=== PATIENT | female | born 1955 | race Caucasian/White ===

== ENCOUNTER 2020-08-07 09:09 | Inpatient (IN) | payer MEDICARE, OTHER, SELFPAY ==
[2020-08-07] VITALS (14 sets, daily range): BP systolic 103–136; BP diastolic 58–94; PULSE 81–94; RESP 15–28; TEMP 36.3–37.6; O2SAT 90–100; BMI 25.8
--- NOTE | ~2020-08-07 | XR_ITS ---
EXAMINATION: XR chest 1V portable EXAM DATE: 08/07/2020 10:04 INDICATION: weakness, history COPD. TECHNIQUE: Portable AP frontal chest x-ray was obtained. Comparison is made to prior examination from 10/10/2015. FINDINGS: The lungs are clear. There are no pleural effusions. Cardiac silhouette is prominent but magnified on this AP technique. There is no pneumothorax suspected. The bones are osteopenic. The re are bony degenerative changes. IMPRESSION: No acute cardiopulmonary findings. Reviewed, dictated and finalized at location B. UTIVE ASSISTANT TO PRESIDENT
--- NOTE | ~2020-08-07 | CT_ITS ---
EXAMINATION: CT brain wo con EXAM DATE: 08/07/2020 09:47 INDICATION: left leg weakness. Dementia. TECHNIQUE: Spiral CT of the head was performed without contrast. Axial, coronal and sagittal images were reviewed. The dose-length product (DLP) for this examination was 605.33 mGy-cm. The exposure w as tailored according to patient size, and iterative reconstruction (ASIR) was used as additional dos e reduction technique. Comparison is made to prior examination from 10/05/2017. FINDINGS: There is no acute intraparenchymal hemorrhage. No evidence of intraparenchymal brain mass lesion. No evidence of acute infarction. Please note that initial head CT has limited sensitivity f or small or acute infarctions. There is moderate periventricular and subcortical hypodensity, nonspec ific but probably related to small vessel ischemic disease. There significant interval progression i n frontotemporal lobe atrophy compared to 2018, finding can correlate with Frontotemporal Dementia. T here is intracranial carotid arteriosclerosis. There are no extra-axial collections. There is no ma ss effect or midline shift. The orbits are unremarkable. Soft tissue is unremarkable. The visualiz ed sinuses and mastoid air cells are well aerated. IMPRESSION: 1. No acute intracranial findings. 2. Significant progression in frontotemporal lobe atrophy; finding could correlate with Frontotempor al Dementia. Reviewed, dictated and finalized at location B. R RELATIONS COORDINATOR IMPRESSION: 1. No acute intracranial findings. 2. Significant progression in frontotemporal lobe atrophy; finding could corre late with Frontotemporal Dementia.
--- NOTE | 2020-08-07 09:32 | ED.WEAKNESS ---
HPI - Weakness General Chief complaint: Weakness Stated complaint: Unable to walk x11/2 weeks Time Seen by Provider: 08/07/20 09:25 History of Present Illness HPI Narrative: Patient is a 65-year-old female who presents the ER with weakness. History limited due to patient's dementia and provided by the patient's . She reports over the last 5 days patient has had increase weakness with walking and he feels like he she is using her left lower extremity less. He reports when he tries to feed her she just holds the food in her mouth. She has been incontinent of urine. Patient had similar symptoms when she had a urinary tract infection in the past. Because she is not using her left lower extremity as well he is concerned she could potentially also have a stroke. No other focal deficit noted. Related Data Home Medications Medication Instructions Recorded Confirmed docusate sodium [Stool Softener] 100 mg PO DAILY 08/07/20 08/07/20 lorazepam 0.5 mg PO DAILY PRN 08/07/20 08/07/20 vfsbcsfhcdtu-Nm-zxix-minerals 1 tablet PO DAILY 08/07/20 08/07/20 [Women's Daily Multivitamin] oxybutynin chloride 10 mg PO DAILY 08/07/20 08/07/20 quetiapine 50 mg PO HS 08/07/20 08/07/20 quetiapine 100 mg PO HS 08/07/20 08/07/20 sertraline 50 mg PO DAILY 08/07/20 08/07/20 sertraline 100 mg PO DAILY 08/07/20 08/07/20 Allergies Allergy/AdvReac Type Severity Reaction Status Date / Time No Known Allergies Allergy Verified 08/07/20 09:26 Review of Systems Review of Systems: ROS unobtainable: Yes unobtainable due to mental status PMFSH Past Medical History Medical History (Updated 08/07/20 @ 18:37 by Raj Balderas MD) Anxiety COPD (chronic obstructive pulmonary disease) CVA (cerebral vascular accident) Dementia Depression Wernicke-Korsakoff syndrome Surgical History Surgical History (Updated 08/07/20 @ 14:24 by Indira Ellis NP) No pertinent past surgical history Surgical history unknown Family History Family History Father Chronic obstructive pulmonary disease Anxiety Mother Hypertension Son No problems noted. Sibling Breast cancer Social History Social History (Updated 08/07/20 @ 14:25 by Indira Ellis NP) Social History: The patient tells me that she used to smoke and according to her record she smoked 2 packs of cigarettes a day for greater than 40 years. She continued to smoke at up until at least 2018. She states that her is a durable power mergers and acquisitions attorney for healthcare that she only has 1 child. She states that she is a full code. The patient quit drinking approximately 2017. She tells me she has to drink vodka and 7up. Smoking status: Former smoker Alcohol intake: former Substance use: never Gender identity (if verbalized by the patient): Female Spiritual care concerns: No Exam Narrative: Exam Narrative: GENERAL: Chronically ill-appearing, well-nourished, and in no acute distress. HEAD: Normocephalic, atraumatic. ENT: Mucous membranes moist. CHEST: Clear to auscultation. No respiratory distress. HEART: Regular rate and rhythm. Normal peripheral pulses. ABDOMEN: Soft, nontender, nondistended. EXTREMITIES: Normal range of motion. No edema. SKIN: Warm, dry, no rash. NEURO: No upper or lower extremity drift. Cranial nerves II through XII intact. Alert and oriented x1. Course Course Emergency Course: Admit for observation as patient is poorly ambulating and fall risk, she has decreased p.o. intake in setting of infection. Vital Signs Vital signs: Vital Signs Temperature 99.6 F 08/07/20 09:17 Pulse Rate 91 08/07/20 09:17 Respiratory Rate 24 H 08/07/20 09:17 Pulse Oximetry 98 08/07/20 09:17 Temperature 97.8 F 08/07/20 18:13 Pulse Rate 82 08/07/20 18:13 Respiratory Rate 16 08/07/20 18:13 Blood Pressure 120/78 08/07/20 18:13 Pulse Oximetry 95 08/07/20 18:13 MDM - Weakness
--- NOTE | 2020-08-07 09:40 | ECG_ITS ---
Measurements Intervals [place] Rate: 89 P: 47 CA: 156 QRS: -51 QRSD: 77 T: 44 QT: 369 QTc: 451 Interpretive Statements SINUS RHYTHM POOR R WAVE PROGRESSION, ANTERIOR LEADS LEFT ANTERIOR FASCICULAR BLOCK BORDERLINE T WAVE ABNORMALITY- ANT/INF LEADS BASELINE ARTIFACT- II, III, AVR, AVL,A VF, V1, V4-V6 ABNORMAL ECG Electronically Signed On 08-07-2020 10:06:26 RECRUITING ADMINISTRATOR by Reggie Edwards D.O.
[2020-08-07 09:44] LABS: Basophils Percent Auto 0.2 % (0.2-1.2); Eosinophils Absolute Auto 0.1 K/mm3 (0-0.3); Eosinophils Percent Auto 1.1 % (0-4.4); Hematocrit 35.4 % (37.0-47.0); Immature Granulocyte Absolute 0.04 K/mm3 (0.00-0.031); Immature Granulocyte Percent A 0.4 % (0-0.5); Lymphocytes Percent Auto 8.1 % (18.3-44.2); Mean Corpuscular HGB Conc 31.1 g/dl (32-36); Mean Corpuscular Hemoglobin 25.9 pg (26-34); Mean Corpuscular Volume 83.3 fl (80-100); Mean Platelet Volume 10.4 fl (7.4-10.4); Monocytes Absolute Auto 0.9 K/mm3 (0.1-0.6); Monocytes Percent Auto 9.5 % (2.6-8.5); Neutrophils Percent Auto 80.7 % (45.5-73.1); Platelet Count Result 305 k/mm3 (150-375); Red Blood Count 4.25 M/mm3 (4.2-5.4); Red Cell Distribution Width 15.6 % (11.5-14.5); White Blood Count 9.9 K/mm3 (4.5-10.0)
[2020-08-07] MEDS: SODIUM CHLORIDE 0.9% IV 1,000 ML 999 ML IV CONT (09:51)
[2020-08-07 09:53] LABS: Add Urine Microscopic? YES; Appearance Urine Cloudy (Clear); Bacteria Urine 1+ /hpf; Bilirubin Urine Negative (Negative); Blood Urine Negative (Negative); Color Urine Amber (Yellow); Glucose Urine UA Negative (Negative); Ketones Urine Negative (Negative); Leukocyte Esterase Ur 2+ LEU/UL (Negative); Mucus Urine Moderate /lpf; Nitrate Urine Negative (Negative); Protein Urine 1+ mg/dL (Negative); RBC Urine >75 /hpf (0-2); Specific Grav Ur 1.025 (1.001-1.035); Squamous Epithelial Cell Urine Few /hpf (Few); WBC Urine 21-30 /hpf
[2020-08-07 09:56] LABS: Alanine Aminotransferase 19 U/L (4-35); Albumin Level 3.8 g/dL (3.5-5.1); Alkaline Phosphatase 102 U/L (38-126); Anion Gap 10 mmol/L (8-16); Aspartate Amino Transferase 28 U/L (14-36); Bilirubin,Total 0.8 mg/dL (0.2-1.3); Blood Urea Nitrogen 18 mg/dL (7-17); Calcium 9.3 mg/dL (8.4-10.2); Carbon Dioxide 28 mmol/L (22-30); Chloride 101 mmol/L (98-107); Estimated CRCL calculation 51 ml/min; Estimated Glomerular Filt Rate > 60; Glucose 106 mg/dL (65-105); Potassium 3.5 mmol/L (3.4-5.0); Sodium 139 mmol/L (137-145)
--- NOTE | 2020-08-07 13:18 | ADMGEN ---
This patient, Viry Mcgarry, was admitted to Medical Room 347-01. Patient/family oriented to hospital policies and general routines including ID bracelet, bed and alarms, visiting hours, pain management, procedures, bathroom and other care routines, personal items, smoking policy, room service/diet, and visiting hours. Information on how to activate the Rapid Response Team has been discussed. Patient/Family are encouraged to report perceived risks to care and to ask questions if they do not understand what they are told or what they should do.
--- NOTE | 2020-08-07 13:53 | PC.NURSE ---
Spoke with Roger, who is spouse and POA that he would like Viry to be a DNR. Spoke with Indira Cruz ok to change in system. Confirmed with a second nurse.
--- NOTE | 2020-08-07 14:19 | PM.IMHP ---
H&P: HPI History of Present Illness Date/Time: 08/07/20 14:19 Chief Complaint: Week Narrative: Viry Mcgarry is a 65 year old female who has a history of dementia and wernicke Korsakoff's syndrome. She lives at home with her . For over the last 5 days she has been walking less. She tries to feed herself of she does hold in her mouth. She has also been incontinent of urine. She has had similar symptoms when she has had urinary tract infections in the past. She has had a history of having TIAs in the past. CT of her brain was negative. Patient's temperature is 99.6? IV fluids and started on ceftriaxone for a UTI. Admitted to observation status on the date of service of 08/07/2020. Review of Systems Review of Systems: All systems reviewed & are unremarkable except as noted in HPI and below Constitutional: Constitutional: Reports as per HPI and Reports no additional constitutional complaints Eyes: Eyes: Reports as per HPI and Reports no additional eye complaints ENT: Reports system reviewed and no additional complaints, except as documented and Reports Normal hearing present Cardiovascular: Cardiovascular: Reports no additional cardiovascular complaints Respiratory: Respiratory: Reports no additional respiratory complaints and Reports no additional respiratory complaints Gastrointestinal: Gastrointestinal: Reports as per HPI and Reports no additional gastrointestinal complaints Musculoskeletal: Musculoskeletal: Reports no additional musculoskeletal complaints Integumentary/Breasts: Skin/Breast: Reports system reviewed and no additional complaints, except as docu and Reports as per HPI Neurologic: Reports system reviewed and no additional complaints, except as documented, Reports as per HPI and Reports Normal hearing present Psychiatric: Psychiatric: Reports no additional psychiatric complaints and Reports as per HPI Endocrine: Endocrine: Reports no additional endocrine complaints Hematologic/Lymphatic: Hematologic/Lymphatic: Reports no additional hematologic/lymphatic complaints Allergic/Immunologic: Allergic/Immunologic: Reports no additional allergic/immunologic complaints [facility] Past Medical History Medical History (Updated 08/07/20 @ 14:24 by Indira Ellis NP) Anxiety COPD (chronic obstructive pulmonary disease) CVA (cerebral vascular accident) Dementia Depression Wernicke-Korsakoff syndrome Surgical History Surgical History (Updated 08/07/20 @ 14:24 by Indira Ellis NP) No pertinent past surgical history Surgical history unknown Family History Family History Father Chronic obstructive pulmonary disease Anxiety Mother Hypertension Son No problems noted. Sibling Breast cancer Social History Social History (Updated 08/07/20 @ 14:25 by Indira Ellis NP) Social History: The patient tells me that she used to smoke and according to her record she smoked 2 packs of cigarettes a day for greater than 40 years. She continued to smoke at up until at least 2018. She states that her is a durable power workers compensation attorney for healthcare that she only has 1 child. She states that she is a full code. The patient quit drinking approximately 2017. She tells me she has to drink vodka and 7up. Smoking status: Former smoker Alcohol intake: former Substance use: never Gender identity (if verbalized by the patient): Female Spiritual care concerns: No Meds Home Medications and Allergies Home Medications Medication Instructions Recorded Confirmed Type docusate sodium [Stool Softener] 100 mg PO DAILY 08/07/20 08/07/20 History lorazepam 0.5 mg PO DAILY PRN 08/07/20 08/07/20 History wkfnlgwmqiod-Un-iatt-minerals 1 tablet PO DAILY 08/07/20 08/07/20 History [Women's Daily Multivitamin] oxybutynin chloride 10 mg PO DAILY 08/07/20 08/07/20 History quetiapine 50 mg PO HS 08/07/20 08/07/20 History quetiapine 100 mg P
--- NOTE | 2020-08-07 14:40 | PCPTNOTE ---
Attempted PT evaluation this afternoon and patient was confused and uncooperative, will attempt at a later time.
[2020-08-07] MEDS: SODIUM CHLORIDE 0.9% IV 1,000 ML 125 ML IV CONT (15:10)
[2020-08-07] MEDS: QUEtiapine FUMARATE 25 MG TABLET 50 MG PO (21:19)
[2020-08-07] MEDS: QUEtiapine FUMARATE 100 MG TABLET PO (21:20)
[2020-08-08] MEDS: SODIUM CHLORIDE 0.9% IV 1,000 ML 125 ML IV CONT ×2 (00:46→09:06)
[2020-08-08 05:42] LABS: Basophils Percent Auto 0.4 % (0.2-1.2); Eosinophils Absolute Auto 0.2 K/mm3 (0-0.3); Eosinophils Percent Auto 1.9 % (0-4.4); Hematocrit 29.5 % (37.0-47.0); Hemoglobin 9.1 g/dL (12.0-15.0); Immature Granulocyte Absolute 0.04 K/mm3 (0.00-0.031); Immature Granulocyte Percent A 0.5 % (0-0.5); Lymphocytes Absolute Auto 0.71 K/mm3 (0.9-3.2); Mean Corpuscular HGB Conc 30.8 g/dl (32-36); Mean Corpuscular Hemoglobin 25.2 pg (26-34); Mean Corpuscular Volume 81.7 fl (80-100); Mean Platelet Volume 10.8 fl (7.4-10.4); Monocytes Absolute Auto 0.8 K/mm3 (0.1-0.6); Monocytes Percent Auto 9.9 % (2.6-8.5); Neutrophils Absolute Auto 6.2 K/mm3 (1.3-6.7); Neutrophils Percent Auto 78.3 % (45.5-73.1); Platelet Count Result 230 k/mm3 (150-375); Red Blood Count 3.61 M/mm3 (4.2-5.4); Red Cell Distribution Width 15.2 % (11.5-14.5); White Blood Count 7.9 K/mm3 (4.5-10.0)
[2020-08-08 05:53] LABS: Magnesium 1.8 mg/dL (1.6-2.3)
[2020-08-08 06:00] VITALS: BP 132/67; PULSE 88; RESP 14; TEMP 37.7; O2SAT 95
[2020-08-08 08:46] LABS: Anion Gap 8 mmol/L (8-16); Blood Urea Nitrogen 11 mg/dL (7-17); Calcium 7.8 mg/dL (8.4-10.2); Carbon Dioxide 21 mmol/L (22-30); Chloride 109 mmol/L (98-107); Estimated CRCL calculation 67 ml/min; Estimated Glomerular Filt Rate > 60; Glucose 82 mg/dL (65-105); Potassium 3.4 mmol/L (3.4-5.0); Sodium 138 mmol/L (137-145)
[2020-08-08] MEDS: DOCUSATE SODIUM 100 MG CAPSULE PO (09:09)
[2020-08-08] MEDS: SERTRALINE HCL 50 MG TABLET 100 MG PO (09:09)
[2020-08-08] MEDS: THERAPEUTIC MULTIVITAMINS/MINERALS TAB (*BKC) 1 TABLET PO (09:09)
[2020-08-08] MEDS: SERTRALINE HCL 50 MG TABLET PO (09:09)
--- NOTE | 2020-08-08 10:48 | PM.IMPN ---
Progress Note: A&P Assessment and Plan (1) UTI (urinary tract infection): Code(s): N39.0 - Urinary tract infection, site not specified Status: Acute Assessment and Plan: patient's notes that patient had becoming more weak and was having episodes of urine incontinence. These findings were similar to a prior urinary tract infection. Urinalysis on presentation was grossly abnormal. Patient had a very low-grade fever with T-max of 99.8?. No leukocytosis. She does not endorse any urinary symptoms, suprapubic pain, flank pain, or CVA tenderness, however patient is a very poor historian. Continue IV Rocephin, started on 08/07/2020 urine cultures are pending. Await results and tailor antibiotics accordingly blood cultures pending continue gentle IV fluids (2) Generalized weakness: Code(s): R53.1 - Weakness Status: Acute Assessment and Plan: Patient noted to be weaker than normal and needing assistance with ambulation, per her . may be secondary to acute infection reverse physical deconditioning or some combination of the two. TSH within normal limits. 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 She is alert to self only. this is reportedly consistent with her baseline Continue her home Seroquel Patient not eating well and noted to be pocketing food in her mouth and her reports she does that at home as well. Speech therapy has been ordered. (4) COPD (chronic obstructive pulmonary disease): Code(s): J44.9 - Chronic obstructive pulmonary disease, unspecified Status: Chronic Assessment and Plan: does not appear to be in acute exacerbation. Lungs are clear to auscultation patient is maintaining adequate oxygen saturations on room air. CXR unremarkable. Albuterol as needed Subjective Date/time seen: 08/08/20 10:48 Interval history: Date of service: 08/08/2020 Viry Garnett is a 65-year-old female with history of COPD, CVA, and Wernicke-Korsakoff syndrome who is seen in follow-up for acute UTI. She is really not able to contribute much to her history. She is repeating the same nonsensical phrase multiple times. She was able to tell me her name but otherwise was not able to provide much information. She did answer yes or no to some questions but it is unclear how much she was really understanding. I spoke with the nurse who reports that she attempted to feed the patient breakfast this morning and she was mostly pocketing food in her mouth. She was drinking some water. She does not appear to be in any significant pain. She was resting comfortably at the time of my visit. Review of Systems Review of Systems: ROS unobtainable: Yes unobtainable due to mental status Exam Narrative: Exam Narrative: Ms. Mcgarry is a well-nourished, chronically ill appearing 65-year-old female who is sitting up in a chair by the bedside. She appears comfortable and is in NARD. HR 88, BP 132/67, RR 14, T 99.8?, 95% on room air Neuro: awake, alert and oriented to self only,speech slightly slurred, no focal neuro deficits noted. Unable to follow any simple commands (she would not wiggle her fingers or toes, stick out her tongue, smile, etc). HEENMT: normocephalic, atraumatic, EOMI, sclerae anicteric, dry oral mucosa, tongue midline, nares patent Neck: supple, no lymphadenopathy Respiratory: clear to auscultation bilaterally, nonlabored breathing Cardio: regular rate, regular rhythm with S1-S2 Abdomen: nondistended, normoactive bowel sounds, soft, nontender to palpation, no rigidity or guarding : wearing depends, no CVA tenderness Extremities: no edema, erythema, cyanosis, clubbing, or tenderness to palpatio
[2020-08-08 14:00] VITALS: BP 114/83; PULSE 96; RESP 20; TEMP 36.7; O2SAT 100
[2020-08-08] MEDS: SODIUM CHLORIDE 0.9% IV 1,000 ML 100 ML IV CONT (18:06)
[2020-08-08] MEDS: QUEtiapine FUMARATE 25 MG TABLET 50 MG PO (20:21)
[2020-08-08] MEDS: QUEtiapine FUMARATE 100 MG TABLET PO (20:21)
[2020-08-08 20:54] VITALS: BP 110/68; PULSE 101; RESP 20; TEMP 36.9; O2SAT 96
[2020-08-09] MEDS: SODIUM CHLORIDE 0.9% IV 1,000 ML 100 ML IV CONT (04:27)
[2020-08-09 05:33] VITALS: BP 143/64; PULSE 86; RESP 18; TEMP 36.6; O2SAT 96
[2020-08-09 06:29] LABS: Anion Gap 11 mmol/L (8-16); Blood Urea Nitrogen 9 mg/dL (7-17); Calcium 7.8 mg/dL (8.4-10.2); Carbon Dioxide 19 mmol/L (22-30); Chloride 108 mmol/L (98-107); Estimated CRCL calculation 67 ml/min; Estimated Glomerular Filt Rate > 60; Glucose 84 mg/dL (65-105); Sodium 138 mmol/L (137-145)
[2020-08-09 06:33] LABS: Hematocrit 28.1 % (37.0-47.0); Mean Corpuscular Hemoglobin 26.5 pg (26-34); Mean Corpuscular Volume 82.6 fl (80-100); Mean Platelet Volume 10.5 fl (7.4-10.4); Platelet Count Result 235 k/mm3 (150-375); Red Cell Distribution Width 15.2 % (11.5-14.5)
[2020-08-09 08:00] VITALS: PULSE 86; RESP 18; O2SAT 96
[2020-08-09] MEDS: POTASSIUM CHLORIDE 20 MEQ PACKET (FOR LIQUID) 40 MEQ PO (08:55)
[2020-08-09] MEDS: DOCUSATE SODIUM 100 MG CAPSULE PO (08:56)
[2020-08-09] MEDS: THERAPEUTIC MULTIVITAMINS/MINERALS TAB (*BKC) 1 TABLET PO (08:56)
[2020-08-09] MEDS: SERTRALINE HCL 50 MG TABLET PO (08:56)
[2020-08-09] MEDS: SERTRALINE HCL 50 MG TABLET 100 MG PO (09:18)
[2020-08-09 10:04] LABS: Folic Acid 7.1 ng/mL (2.76->20)
[2020-08-09 11:52] LABS: Potassium 3.6 mmol/L (3.4-5.0)
[2020-08-09] MEDS: FOLIC ACID 1 MG TABLET PO (11:55)
[2020-08-09] MEDS: THIAMINE HCL 100 MG TABLET PO (11:55)
--- NOTE | 2020-08-09 12:23 | PCNFU ---
Nutrition Follow-Up Complete: Inadequate oral intake related to dementia and reduced appetite as evidence by PO intake of 10%. Goal: PO intake of 50% of meals and supplements to help meet nutrition needs Limited progress towards goal. We will continue current goal. Pt current nutrition is Regular. Nutrition recommendation: Agree Last recorded weight is 68.3 kg, no new weight. Bowel Motility:+BM noted 08/08 Labs Reviewed:K 3.0,Cr 0.6,Hct 28.1,Hgb 9.0 Meds Noted:Colace, Seroquel,Folic Acid, Vit B-1 Additional Notes: Nutrition follow up. Spoke with KENDRICK Tan in regards to patient current diet orders. MD orders for regular diet vs heart healthy. Patient has been pocketing foods, feeder. Oral Intake 0-10% of meals. Diet supplements continue of Ensure Enlive BID providing an additional 350 kcals and 20 gms protein. Monitoring: po intake, weight every three days
--- NOTE | 2020-08-09 12:35 | PM.IMPN ---
Progress Note: A&P Assessment and Plan (1) UTI (urinary tract infection): Code(s): N39.0 - Urinary tract infection, site not specified Status: Acute Assessment and Plan: Patient's notes that patient had becoming more weak and was having episodes of urine incontinence. These findings were similar to a prior urinary tract infection. Urinalysis on presentation was grossly abnormal. Patient had a very low-grade fever with T-max of 99.8?. No leukocytosis. She is not able to indicate if she is experiencing urinary symptoms. Urine culture showed > 100,000 CFU g positive organisms that were noted to be non uro-pathogenic and may be colonizers. We will continue treating as UTI given her clinical picture. Continue IV Rocephin, started on 08/07/2020. blood cultures pending. Preliminary cultures with NGTD. continue gentle IV fluids (2) Generalized weakness: Code(s): R53.1 - Weakness Status: Acute Assessment and Plan: Patient noted to be weaker than normal and needing assistance with ambulation, per her . May be secondary to acute infection vs physical deconditioning or some combination of the two. TSH, B12, and folate within normal limits. 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 She is alert to self only. This is reportedly consistent with her baseline Continue her home Seroquel Supplement with PO Thiamine and folic acid Patient not eating well and noted to be pocketing food in her mouth and her reports she does that at home as well. Speech therapy has been ordered. (4) COPD (chronic obstructive pulmonary disease): Code(s): J44.9 - Chronic obstructive pulmonary disease, unspecified Status: Chronic Assessment and Plan: Does not appear to be in acute exacerbation. Lungs are clear to auscultation and patient is maintaining adequate oxygen saturations on room air. CXR unremarkable. Albuterol as needed (5) Feeding difficulty: Code(s): R63.3 - Feeding difficulties Status: Acute Assessment and Plan: Patient is not eating. She has been pocketing food in her mouth. Her reports she does this at home often as well. Speech therapy and assistant product manager are following and input is appreciated Continue dietary supplements Monitor oral intake closely (6) Hypokalemia: Code(s): E87.6 - Hypokalemia Status: Acute Assessment and Plan: Likely secondary to poor p.o. intake. Potassium was 3.0 today. Will provide 40 mEq KCl Monitor potassium closely and replace as needed Subjective Date/time seen: 08/09/20 12:35 Interval history: Date of service: 08/09/2020 Viry Garnett is a 65-year-old female with history of COPD, CVA, and Wernicke-Korsakoff syndrome who is seen in follow-up for acute UTI. She is not able to contribute to history. She is again reciting nonsensical phrases repeatedly. She can tell me her name and date of but does not offer any further information. Per discussion with nursing staff, she has not been chewing or swallowing any of her food. She has been pocketing in her mouth and is not taking any food in. Nursing staff also notes that she had some clear foamy sputum production today that she did not expectorate or swallow and therefore required suctioning. She is participating in therapy, however she is unable to follow directions which limits therapy outcome. She does appear comfortable. Review of Systems Review of Systems: ROS unobtainable: Yes unobtainable due to mental status Exam Narrative: Exam Narrative: Ms. Mcgarry is a chronically ill appearing 65-year-old female who is lying semi recumbent in bed. She appears comfortable and is in
[2020-08-09 14:00] VITALS: BP 140/68; PULSE 82; RESP 18; TEMP 36.1; O2SAT 98
[2020-08-09] MEDS: QUEtiapine FUMARATE 25 MG TABLET 50 MG PO (20:45)
[2020-08-09] MEDS: QUEtiapine FUMARATE 100 MG TABLET PO (20:46)
[2020-08-09 20:57] VITALS: BP 127/79; PULSE 99; RESP 18; TEMP 36.8; O2SAT 98
[2020-08-10 06:00] VITALS: BP 112/65; PULSE 87; RESP 16; TEMP 36.4; O2SAT 96
[2020-08-10 06:14] LABS: Hematocrit 29.1 % (37.0-47.0); Hemoglobin 9.2 g/dL (12.0-15.0); Mean Corpuscular HGB Conc 31.6 g/dl (32-36); Mean Corpuscular Hemoglobin 25.8 pg (26-34); Mean Corpuscular Volume 81.7 fl (80-100); Mean Platelet Volume 10.5 fl (7.4-10.4); Platelet Count Result 267 k/mm3 (150-375); Red Blood Count 3.56 M/mm3 (4.2-5.4); Red Cell Distribution Width 15.3 % (11.5-14.5); White Blood Count 7.9 K/mm3 (4.5-10.0)
[2020-08-10 06:38] LABS: Anion Gap 7 mmol/L (8-16); Blood Urea Nitrogen 6 mg/dL (7-17); Calcium 8.1 mg/dL (8.4-10.2); Carbon Dioxide 22 mmol/L (22-30); Chloride 106 mmol/L (98-107); Estimated CRCL calculation 67 ml/min; Estimated Glomerular Filt Rate > 60; Glucose 88 mg/dL (65-105); Potassium 3.3 mmol/L (3.4-5.0); Sodium 135 mmol/L (137-145)
[2020-08-10] MEDS: DOCUSATE SODIUM 100 MG CAPSULE PO (08:43)
[2020-08-10] MEDS: POTASSIUM CHLORIDE 20 MEQ PACKET (FOR LIQUID) PO (08:43)
[2020-08-10] MEDS: THIAMINE HCL 100 MG TABLET PO (08:43)
[2020-08-10] MEDS: THERAPEUTIC MULTIVITAMINS/MINERALS TAB (*BKC) 1 TABLET PO (08:43)
[2020-08-10] MEDS: SERTRALINE HCL 50 MG TABLET PO (08:43)
[2020-08-10] MEDS: SERTRALINE HCL 50 MG TABLET 100 MG PO (08:43)
[2020-08-10] MEDS: FOLIC ACID 1 MG TABLET PO (08:43)
--- NOTE | 2020-08-10 11:12 | PM.IMPN ---
Progress Note: A&P Assessment and Plan (1) UTI (urinary tract infection): Code(s): N39.0 - Urinary tract infection, site not specified Status: Acute Assessment and Plan: Patient's notes that patient was becoming more weak and was having episodes of urine incontinence. These findings were similar to a prior urinary tract infection. Urinalysis on presentation was grossly abnormal. Patient had a very low-grade fever with T-max of 99.8? but now afebrile >48 hrs. No leukocytosis. She is not able to indicate if she is experiencing urinary symptoms. Urine culture showed > 100,000 CFU g positive organisms that were noted to be non uro-pathogenic and may be colonizers. We will continue treating as UTI given her clinical picture. Continue IV Rocephin, started on 08/07/2020. blood cultures pending. Preliminary cultures with NGTD. (2) Generalized weakness: Code(s): R53.1 - Weakness Status: Acute Assessment and Plan: Patient noted to be weaker than normal and needing assistance with ambulation, per her . May be secondary to acute infection vs physical deconditioning or some combination of the two. TSH, B12, and folate within normal limits. Patient requiring 2 person assistance for transfers. appreciate PT and OT evaluation care coordination following. Plan is for patient to return home with her per his wishes, however she is requiring 2 person assists. She will need more therapy but if she does not improve, placement will need to be considered. 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 She is oriented to self only. This is reportedly consistent with her baseline Continue her home Seroquel Supplement with PO Thiamine and folic acid (4) COPD (chronic obstructive pulmonary disease): Code(s): J44.9 - Chronic obstructive pulmonary disease, unspecified Status: Chronic Assessment and Plan: Does not appear to be in acute exacerbation. Lungs are clear to auscultation and patient is maintaining adequate oxygen saturations on room air. CXR unremarkable. Albuterol as needed (5) Feeding difficulty: Code(s): R63.3 - Feeding difficulties Status: Acute Assessment and Plan: Patient with poor PO intake. She has been pocketing food in her mouth. Her reports she does this at home often as well. Noted to be eating a bit more today. Speech therapy and laundry tub maker are following and input is appreciated Continue dietary supplements Monitor oral intake closely (6) Hypokalemia: Code(s): E87.6 - Hypokalemia Status: Acute Assessment and Plan: Likely secondary to poor p.o. intake. Slowly improving. Potassium 3.3 today Will supplement 20 mEq KCl Monitor potassium closely and replace as needed Subjective Date/time seen: 08/10/20 11:12 Interval history: Date of service: 08/10/2020 Viry Garnett is a 65-year-old female with history of COPD, CVA, and Wernicke-Korsakoff syndrome who is seen in follow-up for UTI. She is not able to contribute to history. She continues to recite nonsensical phrases. She can tell me her name and date of but does not offer any further information. She doesn't really follow any simple commands. Per discussion with nursing staff, she has been eating a little better today but continues to pocket food. No further sputum production has been noted and she has not required suctioning. Nurse notes occasional wet cough. Notes weakness. Reports patient is requiring 2 person assistance for transferring and many verbal cues. Review of Systems Review of Systems: ROS unobtainable: Yes unobtainable due to mental status Exam Narrative: Exam Narrative: Ms. Mcgarry is a chronically ill albert
[2020-08-10 14:13] VITALS: BP 136/76; PULSE 102; RESP 16; TEMP 36; O2SAT 93
[2020-08-10] MEDS: QUEtiapine FUMARATE 100 MG TABLET PO (20:30)
[2020-08-10] MEDS: QUEtiapine FUMARATE 25 MG TABLET 50 MG PO (20:30)
[2020-08-10 21:23] VITALS: BP 145/80; PULSE 112; RESP 18; TEMP 36.6; O2SAT 94
[2020-08-11 05:36] VITALS: BP 114/72; PULSE 84; RESP 16; TEMP 36.6; O2SAT 96
[2020-08-11 06:35] LABS: Hematocrit 29.1 % (37.0-47.0); Hemoglobin 9.5 g/dL (12.0-15.0); Mean Corpuscular HGB Conc 32.6 g/dl (32-36); Mean Corpuscular Hemoglobin 26.2 pg (26-34); Mean Corpuscular Volume 80.4 fl (80-100); Mean Platelet Volume 10.2 fl (7.4-10.4); Platelet Count Result 274 k/mm3 (150-375); Red Blood Count 3.62 M/mm3 (4.2-5.4); Red Cell Distribution Width 15.3 % (11.5-14.5); White Blood Count 6.9 K/mm3 (4.5-10.0)
[2020-08-11 06:59] LABS: Anion Gap 7 mmol/L (8-16); Blood Urea Nitrogen 9 mg/dL (7-17); Calcium 8.2 mg/dL (8.4-10.2); Carbon Dioxide 25 mmol/L (22-30); Chloride 104 mmol/L (98-107); Estimated CRCL calculation 67 ml/min; Estimated Glomerular Filt Rate > 60; Glucose 93 mg/dL (65-105); Potassium 3.6 mmol/L (3.4-5.0); Sodium 136 mmol/L (137-145)
[2020-08-11 08:00] VITALS: PULSE 84; RESP 16; O2SAT 96
[2020-08-11] MEDS: FOLIC ACID 1 MG TABLET PO (09:46)
[2020-08-11] MEDS: SERTRALINE HCL 50 MG TABLET 100 MG PO (09:46)
[2020-08-11] MEDS: THIAMINE HCL 100 MG TABLET PO (09:46)
[2020-08-11] MEDS: SERTRALINE HCL 50 MG TABLET PO (09:47)
[2020-08-11] MEDS: DOCUSATE SODIUM LIQ 100 MG/10 ML UDC PO (11:52)
[2020-08-11] MEDS: MULTIVIT W/ IRON, MINERALS 15 ML LIQUID (*BKC) PO (11:52)
--- NOTE | 2020-08-11 13:13 | PM.DS ---
DS: Admitting Diagnosis Admitting Diagnosis Admitting Diagnosis: generalized weakness DS: Discharge Diagnosis Discharge Diagnosis (1) UTI (urinary tract infection): Code(s): N39.0 - Urinary tract infection, site not specified Status: Acute Assessment and Plan: Patient's notes that patient was becoming more weak and was having episodes of urine incontinence. These findings were similar to a prior urinary tract infection. Urinalysis on presentation was grossly abnormal. Patient had a very low-grade fever with T-max of 99.8? that resolved. No leukocytosis. She was unable to indicate if she is experiencing urinary symptoms. Urine culture showed > 100,000 CFU gram positive organisms that were noted to be non uro-pathogenic and may be colonizers. Treatment for acute UTI was continued given her clinical picture. She received IV Rocephin x5 doses and will continue with PO Cefdinir to complete a total of 7 days antibiotic therapy. Preliminary blood cultures with NGTD. (2) Generalized weakness: Code(s): R53.1 - Weakness Status: Acute Assessment and Plan: Patient noted to be weaker than normal and needing assistance with ambulation, per her . May be secondary to acute infection vs physical deconditioning or some combination of the two. TSH, B12, and folate within normal limits. Patient requiring 2 person assistance for transfers. initial plan was for her to return home per her 's request, however based on her progress with therapy, it was determined that she would benefit from SNF placement. agreed. She will continue therapy at [facility]. 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 She is oriented to self only. This is reportedly consistent with her baseline. Continue her home Seroquel. She was started on daily PO Thiamine and folic acid supplements. (4) COPD (chronic obstructive pulmonary disease): Code(s): J44.9 - Chronic obstructive pulmonary disease, unspecified Status: Chronic Assessment and Plan: Does not appear to be in acute exacerbation. Lungs are clear to auscultation and patient is maintaining adequate oxygen saturations on room air. CXR unremarkable. (5) Feeding difficulty: Code(s): R63.3 - Feeding difficulties Status: Acute Assessment and Plan: Patient with poor PO intake. She has been pocketing food in her mouth. Her reports she does this at home often as well. Speech therapy and [facility] man evaluated patient. PO intake improved. Dietary supplements should be continued. (6) Hypokalemia: Code(s): E87.6 - Hypokalemia Status: Acute Assessment and Plan: Likely secondary to poor p.o. intake. Potassium was supplemented and monitored. Resolved. DS: Summary Hospital Course Reason for hospitalization: Generalized weakness Hospital Course: date of admission: 08/07/2020 date of discharge: 08/11/2020 Viry Garnett is a 65-year-old female with history of COPD, CVA, and Wernicke-Korsakoff syndrome who presented to the emergency department on 08/07/2020 with complaints of generalized weakness. Her reported over the past 5 days she had difficulty with walking as well as urinary incontinence. Upon presentation to the ED, her vital signs were stable and she was afebrile, she had mild anemia, her like joints were stable, her urinalysis was grossly abnormal, head CT showed no acute findings with progression and frontotemporal lobe atrophy, and CXR was clear. She was admitted to the hospitalist service for further evaluation and management. Please see above for further details. She was treated for urinary tract infection as above. She participated in PT / OT and will continue therapy at [facility].
[2020-08-11 19:30] LABS: SARS-CoV-2 RNA PCR Positive
== END 2020-08-11 14:16 | DRG 178 ==
LOC: ANHED 09:28 → ANH3MED 11:07
PROVIDERS: Nurse Practitioner; Physician Assistant; Admitting Provider Internal Medicine; Emergency Provider Emergency Medicine; PCP Family Medicine; Visit Provider Family Medicine
DX: U07.1 COVID-19 (principal); N39.0 Urinary tract infection, site not specified; F03.90 Unspecified dementia, unspecified severity, without behavioral disturbance, psychotic disturbance, mood disturbance, and anxiety; R63.3 Feeding difficulties; E87.6 Hypokalemia; R53.1 Weakness; F04 Amnestic disorder due to known physiological condition; J44.9 Chronic obstructive pulmonary disease, unspecified; F32.9 Major depressive disorder, single episode, unspecified; F41.9 Anxiety disorder, unspecified; Z86.73 Personal history of transient ischemic attack (TIA), and cerebral infarction without residual deficits; Z87.891 Personal history of nicotine dependence
CPT/HCPCS: 36415; 51701; 70450; 71045; 80048; 80053; 81001; 82607; 82728; 82746; 83735; 84132; 84443; 85025; 85027; 87040; 87086; 87088; 87635; 92507; 92523; 93005; 96361; 96365; 97129; 97161; 97166; 97530; 99285; A9270; C9803; G0378; J0696; J7030; U0003

== ENCOUNTER 2020-09-05 17:46 | Inpatient (IN) | payer MEDICARE, OTHER, SELFPAY ==
[2020-09-05] VITALS (25 sets, daily range): BP systolic 99–144; BP diastolic 52–77; PULSE 88–99; RESP 17–30; TEMP 36.2; O2SAT 92–100
--- NOTE | ~2020-09-05 | US_ITS ---
EXAMINATION: US renal BI EXAM DATE: 09/06/2020 12:29 INDICATION: acute renal failure ARF. TECHNIQUE: Multiple grayscale and Doppler images of the kidneys were obtained (by a technologist who performed the scan) and subsequently reviewed. There is no prior study for comparison. FINDINGS: Right kidney: There is normal contour and echogenicity. It measures 9.6 x 4.5 x 4.5 centimeters. Th ere are no focal renal lesions identified. There is no hydronephrosis. Left kidney: There is normal contour and echogenicity. It measures 8.6 x 5.3 x 4.2 centimeters. The re are no focal renal lesions identified. There is no hydronephrosis. Boateng catheter within collapsed bladder. IMPRESSION: 1. Sonographically unremarkable kidneys. Reviewed, dictated and finalized at location A. OUS EXCEPTIONALITIES TEACHER
--- NOTE | ~2020-09-05 | XR_ITS ---
EXAMINATION: XR chest 1V portable INDICATION: Transient alteration of awareness TECHNIQUE: Portable AP chest at 1841 hours COMPARISON: 08/07/2020 FINDINGS: There are minimal airspace opacities of the left lung base. No pleural effusion or pneumoth orax is identified. The cardiomediastinal silhouette is stable. IMPRESSION: 1. Left basilar airspace opacities, consistent with atelectasis versus pneumonia. Reviewed, dictated and finalized at location A. KER ON IMPRESSION: 1. Left basilar airspace opacities, consistent with atelectasis versus pneumoni a.
--- NOTE | ~2020-09-05 | CT_ITS ---
EXAMINATION: CT brain wo con INDICATION: Altered mental status COMPARISON: 08/07/2020 TECHNIQUE: Standard unenhanced head CT. The dose-length product (DLP) was 605.33 mGy-cm. The mA was a djusted according to patient size. Iterative reconstruction technique was employed. FINDINGS: Motion artifact slightly limits the examination. There is no acute intraparenchymal hemorrh age. No evidence of mass lesion. No evidence of acute infarction. There is moderate periventricular a nd subcortical hypodensity probably related to small vessel ischemic disease. There is moderate promi nence of the sulci and ventricles related to cerebral atrophy. Significant frontotemporal atrophy is again noted. Intracranial calcified cerebral atherosclerosis is noted. There are no extra-axial colle ctions. There is no mass effect or midline shift. The orbits and soft tissues are unremarkable. The visualized sinuses and mastoid air cells are well aerated. IMPRESSION: 1. No acute intracranial abnormality. 2. Age related findings. Reviewed, dictated and finalized at location A. TRICIAN HELPER
--- NOTE | 2020-09-05 17:58 | ECG_ITS ---
Measurements Intervals [place] Rate: 90 P: 56 NE: 152 QRS: -40 QRSD: 78 T: 125 QT: 396 QTc: 486 Interpretive Statements SINUS RHYTHM LEFT AXIS DEVIATION POOR R WAVE PROGRESSION, ANTERIOR LEADS T WAVE ABNORMALITY IN HIGH LATERAL LEADS- CONSIDER ISCHEMIA BASELINE ARTIFACT- I, II, III, AVL, AVF, V4-V5 ABNORMAL ECG Electronically Signed On 09-06-2020 7:14:34 PLUSH CUTTER by Reggie Edwards D.O.
[2020-09-05 18:25] LABS: Alveolar/Arterial O2 Gradient 42.6 mmHg; Base Excess ABG -9.3 mEq/l (+/-2.0); Carboxyhemoglobin 0.3 % THb (0-2.0); Fractional Inspired Oxygen 21 %; HCO3 ABG 14.9 mEq/l (22.0-26.0); Methemoglobin ABG 0.8 %THb (0-1.5); Oxygen Content ABG 15.5 %vol (16.0-22.0); Oxygen Saturation ABG 94.5 % (95.0-100.0); Oxyhemoglobin 92.1 % THb (90.0-100.0); PCO2 ABG 27.6 mmHg (35.0-45.0); PO2 ABG 74.1 mmHg (80.0-100.0); PO2 FiO2 Ratio Arterial Blood 3.53 %; Reduced Hemoglobin 6.8 %THb (0-5.0); Total Hemoglobin 11.9 g/dL (12.0-18.0); pH ABG 7.349 (7.350-7.450)
[2020-09-05 18:28] LABS: Device ROOM AIR; Site Drawn LEFT BRACHIAL
[2020-09-05 18:30] LABS: Basophils Percent Auto 0.3 % (0.2-1.2); Eosinophils Percent Auto 0.3 % (0-4.4); Hematocrit 42.3 % (37.0-47.0); Immature Granulocyte Absolute 0.06 K/mm3 (0.00-0.031); Immature Granulocyte Percent A 0.5 % (0-0.5); Immature Platelet Fraction Pct 9.9 % (0.9-11.2); Lymphocytes Absolute Auto 1.32 K/mm3 (0.9-3.2); Lymphocytes Percent Auto 10.6 % (18.3-44.2); Mean Corpuscular HGB Conc 28.4 g/dl (32-36); Mean Corpuscular Hemoglobin 25.4 pg (26-34); Mean Corpuscular Volume 89.4 fl (80-100); Monocytes Absolute Auto 0.9 K/mm3 (0.1-0.6); Neutrophils Absolute Auto 10.1 K/mm3 (1.3-6.7); Neutrophils Percent Auto 81.3 % (45.5-73.1); Nucleated Red Blood Cells Perc 0.2 % (0.0-0.2); Platelet Count Result 138 k/mm3 (150-375); Red Blood Count 4.73 M/mm3 (4.2-5.4); Red Cell Distribution Width 20.7 % (11.5-14.5); White Blood Count 12.5 K/mm3 (4.5-10.0)
[2020-09-05 18:36] LABS: Add Urine Microscopic? YES; Appearance Urine Cloudy (Clear); Bacteria Urine 1+ /hpf; Bilirubin Urine 1+ (Negative); Blood Urine Negative (Negative); Budding Yeast Urine Present /hpf; Color Urine Amber (Yellow); Glucose Urine UA Negative (Negative); Ketones Urine Trace mg/dL (Negative); Leukocyte Esterase Ur 1+ LEU/UL (Negative); Mucus Urine Heavy /lpf; Nitrate Urine Positive (Negative); Protein Urine 2+ mg/dL (Negative); RBC Urine 21-50 /hpf (0-2); Specific Grav Ur 1.026 (1.001-1.035); Squamous Epithelial Cell Urine Many /hpf (Few); Urobilinogen Urine Negative mg/dL (<2.0); WBC Urine 21-30 /hpf
[2020-09-05 18:38] LABS: Hypochromasia 1+ (NORMAL); INR 1.6; Lactic Acid Reflex 2.5 mmol/L (0.7-2.1); Ovalocytes 1+ (NORMAL); Prothrombin Time 19.3 Seconds (11.1-14.7)
[2020-09-05] MEDS: SODIUM CHLORIDE 0.9% IV 1,000 ML 999 ML IV CONT (18:38)
[2020-09-05] MEDS: LORazepam INJ (*CRX) 2 MG/ML VIAL 0.5 MG IV PUSH (18:38)
[2020-09-05 18:39] LABS: Ammonia 36 umol/L (9-30); Partial Thromboplastin Time 48.7 SECONDS (22.3-36.8)
[2020-09-05 18:43] LABS: CRP 5.1 mg/dL (<1.0); Creatine Kinase 1542 U/L (30-135)
[2020-09-05 18:48] LABS: Alanine Aminotransferase 36 U/L (4-35); Albumin Level 3.5 g/dL (3.5-5.1); Alkaline Phosphatase 236 U/L (38-126); Anion Gap 19 mmol/L (8-16); Aspartate Amino Transferase 83 U/L (14-36); Bilirubin,Total 0.7 mg/dL (0.2-1.3); Calcium 9.8 mg/dL (8.4-10.2); Carbon Dioxide 18 mmol/L (22-30); Chloride 153 mmol/L (98-107); Estimated CRCL calculation 5 ml/min; Estimated Glomerular Filt Rate 5; Glucose 104 mg/dL (65-105); Potassium 4.5 mmol/L (3.4-5.0); Sodium 190 mmol/L (137-145)
[2020-09-05 18:55] LABS: Troponin I 0.342 ng/mL (0.000-0.034)
[2020-09-05 19:02] LABS: Blood Urea Nitrogen 151 mg/dL (7-17)
[2020-09-05] MEDS: HALOPERIDOL LACTATE 5 MG/ML VIAL 2.5 MG IM (19:12)
--- NOTE | 2020-09-05 19:21 | PC.NURSE ---
Report received from DORIAN Cole. Awaiting disposition. Pt is lying quietly on stretcher. Attempt to awaken patient, opens eyes but is nonverbal.
--- NOTE | 2020-09-05 20:35 | ED.AMS ---
HPI - Altered Mental Status General Chief Complaint: Altered Mental Status Stated Complaint: AMS Time Seen by Provider: 09/05/20 17:51 Source: EMS and RN notes reviewed Mode of arrival: EMS Limitations: altered mental status History of Present Illness HPI narrative: This patient is a 65 year old female with history of dementia, Wernicke Korsakoff who presents from the shelter for evaluation of altered mental status. Nursing report that patient has not been eating for the past 1-2 days. They reports patient is also altered. Her baseline is alert and oriented to person only. Today she is unable to answer any questions. They also reports patient was found clinching her teeth and flailing. MD complaint: altered mental status Related Data Home Medications Medication Instructions Recorded Confirmed docusate sodium [Stool Softener] 100 mg PO DAILY 08/07/20 08/07/20 nxpwghfbdgib-Pc-wlum-minerals 1 tablet PO DAILY 08/07/20 08/07/20 oxybutynin chloride 10 mg PO DAILY 08/07/20 08/07/20 quetiapine 50 mg PO HS 08/07/20 08/07/20 quetiapine 100 mg PO HS 08/07/20 08/07/20 sertraline 50 mg PO DAILY 08/07/20 08/07/20 sertraline 100 mg PO DAILY 08/07/20 08/07/20 Allergies Allergy/AdvReac Type Severity Reaction Status Date / Time No Known Allergies Allergy Verified 09/05/20 18:00 Review of Systems Review of Systems: ROS unobtainable: Yes unobtainable due to mental status PMFSH Past Medical History Medical History Anxiety COPD (chronic obstructive pulmonary disease) CVA (cerebral vascular accident) Dementia Depression Wernicke-Korsakoff syndrome Surgical History Surgical History No pertinent past surgical history Surgical history unknown Family History Family History Father Chronic obstructive pulmonary disease Anxiety Mother Hypertension Son No problems noted. Sibling Breast cancer Social History Social History Social History: The patient tells me that she used to smoke and according to her record she smoked 2 packs of cigarettes a day for greater than 40 years. She continued to smoke at up until at least 2018. She states that her is a durable power claims attorney for healthcare that she only has 1 child. She states that she is a full code. The patient quit drinking approximately 2017. She tells me she has to drink vodka and 7up. Smoking status: Former smoker Alcohol intake: unknown Substance use: unknown Gender identity (if verbalized by the patient): Female Sexual Orientation (if Verbalized by the Patient): Straight or Heterosexual Spiritual care concerns: No Exam Const: General: ill appearing Nutritional Appearance: thin Limitations: altered mental status HENMT: Mouth: Yes dry mucous membranes Eyes: EOM: EOMs intact bilaterally Resp: Effort & Inspection: normal respiratory effort and no retractions Auscultation: clear to auscultation bilaterally Cardio: Rate: regular rate Rhythm: regular rhythm Heart sounds: no murmurs GI: Inspection: non-distended GI Palp: Yes Soft to palpation, No Tenderness to palpation present (GI) and No Guarding due to palpation present (GI) Auscultation: normal bowel sounds Other: guaic negative Neuro: General: moves all extremities Course Consultations Consultation #1: I discussed case with Dr. Estes labs and imaging. He accepts to IMU with nephrology consult. Date: 09/05/20 Time: 20:35 Consultation #2: I Discussed case with Dr. Nielsen. He request patient be started on D5W at 100ml/Hr. Date: 09/05/20 Time: 21:26 Vital Signs Vital signs: Vital Signs Temperature 97.1 F L 09/05/20 17:53 Pulse Rate 93 09/05/20 17:53 Respiratory Rate 18 09/05/20 17:53 Blood Pressure 119/67 09/05/20 17:53 Pulse Oxime
--- NOTE | 2020-09-05 21:08 | PM.IMHP ---
H&P: HPI History of Present Illness Date/Time: 09/05/20 21:08 Chief Complaint: altered mental status Narrative: This is a 65 year old female with severe dementia secondary to Wernicke-Korsakoff syndrome who is known to normally only be oriented to herself and presented to the hospital today with her with altered mental status and decreased PO intake of food and fluids. The patient has been nonverbal tonight and agitated in the ER. She received ativan and several doses of haldol. She was recently admitted to our hospitalist service for generalized weakness and a UTI. She was evaluated in the ER tonight and found to be severely dehydrated with severe hypernatremia with a serum sodium of 190 mEq/dl, in acute renal failure with a serum creatinine of 7.6, in rhabdomyolysis with a CK level of 1542, and an elevated troponin of 0.342. Urinalysis was again grossly abnormal. CT brain was unremarkable. The patient was treated with IV fluids, IV antibiotics, and antipsychotic medications as listed above. No other history is obtainable at this time. Review of Systems Review of Systems: All systems reviewed & are unremarkable except as noted in HPI and below PMFSH Past Medical History Medical History Anxiety COPD (chronic obstructive pulmonary disease) CVA (cerebral vascular accident) Dementia Depression Metabolic acidosis Wernicke-Korsakoff syndrome Surgical History Surgical History No pertinent past surgical history Surgical history unknown Family History Family History Father Chronic obstructive pulmonary disease Anxiety Mother Hypertension Son No problems noted. Sibling Breast cancer Social History Social History Social History: The patient tells me that she used to smoke and according to her record she smoked 2 packs of cigarettes a day for greater than 40 years. She continued to smoke at up until at least 2018. She states that her is a durable power contracts attorney for healthcare that she only has 1 child. She states that she is a full code. The patient quit drinking approximately 2017. She tells me she has to drink vodka and 7up. Smoking status: Unknown if ever smoked Alcohol intake: unknown Substance use: unknown Gender identity (if verbalized by the patient): Female Spiritual care concerns: No Meds Home Medications and Allergies Home Medications Medication Instructions Recorded Confirmed Type docusate sodium [Stool Softener] 100 mg PO DAILY 08/07/20 09/06/20 History ptdsrfnbezpm-Zs-bgqi-minerals 1 tablet PO DAILY 08/07/20 09/06/20 History oxybutynin chloride 10 mg PO DAILY 08/07/20 09/06/20 History quetiapine 50 mg PO HS 08/07/20 09/06/20 History quetiapine 100 mg PO HS 08/07/20 09/06/20 History sertraline 50 mg PO DAILY 08/07/20 09/06/20 History sertraline 100 mg PO DAILY 08/07/20 09/06/20 History folic acid 1 mg PO DAILY #30 tablet 08/11/20 09/06/20 Rx lorazepam 0.5 mg PO DAILY PRN #30 tablet 08/11/20 09/06/20 Rx thiamine HCl (vitamin B1) [Vitamin 100 mg PO QAM #30 tablet 08/11/20 09/06/20 Rx B-1] Allergies Allergy/AdvReac Type Severity Reaction Status Date / Time No Known Allergies Allergy Verified 09/05/20 18:00 Vital Signs Vital Signs - 24 hr 09/05/20 17:53 09/05/20 18:48 09/05/20 19:15 Temperature 36.2 C L Pulse Rate 93 99 95 Respiratory Rate 18 26 H 30 H Blood Pressure 119/67 110/77 Pulse Oximetry 95 09/05/20 19:33 09/05/20 19:45 09/05/20 20:01 Temperature Pulse Rate 95 93 95 Respiratory Rate 23 H 27 H 27 H Blood Pressure 99/54 L 118/57 L Pulse Oximetry Exam Const: General: awake and other (Dehydrated++ ) Nutritional Appearance: well nourished Orientation/consciousness: lethargic and Other orientation find
[2020-09-05 21:25] LABS: Reflex Lactic Acid Yes or No Add Lactic
[2020-09-05] MEDS: LACTATED RINGERS 1,000 ML 999 ML IV CONT (21:45)
--- NOTE | 2020-09-05 22:12 | PC.NURSE ---
Per Dr. Keller, Dr. Nielsen wishes to cancel the LR order and given the D5W @ 100/hr.
[2020-09-05] MEDS: DEXTROSE 5% 1,000 ML 1,000 ML 120 ML IV CONT (22:18)
--- NOTE | 2020-09-05 22:20 | PC.NURSE ---
Attempt to give report to IMU as bed is available, floor states unable to take report because the bed is not clean.
[2020-09-05 22:21] LABS: Lactic Acid 1.7 mmol/L (0.7-2.1)
[2020-09-05 22:29] LABS: Anion Gap 15 mmol/L (8-16); Calcium 8.9 mg/dL (8.4-10.2); Carbon Dioxide 16 mmol/L (22-30); Chloride 154 mmol/L (98-107); Estimated CRCL calculation 5 ml/min; Estimated Glomerular Filt Rate 5; Glucose 98 mg/dL (65-105); Sodium 185 mmol/L (137-145)
[2020-09-05 22:47] LABS: Blood Urea Nitrogen 146 mg/dL (7-17)
[2020-09-05 22:51] LABS: Troponin I 0.317 ng/mL (0.000-0.034)
[2020-09-06] VITALS (13 sets, daily range): BP systolic 109–115; BP diastolic 50–86; PULSE 49–94; RESP 18–24; TEMP 35.9–36.6; O2SAT 91–97
--- NOTE | 2020-09-06 | ECHO_ITS ---
Patient Info Name: Viry Mcgarry Age: 65 years : 1955 Gender: Female Ht: 62 in Wt: 125 lbs BSA: 1.58 m2 HR: 85 bpm BP: 112 / 63 mmHg Heart Rhythm: Sinus Rhythm Technical Quality: Fair Exam Date: 09/06/2020 2:09 PM Exam Location: [facility] Patient Status: Inpatient Admit Date: 09/05/2020 Staff Ordering Physician: Paul Jean Baptiste MD Journeyman Meat Cutter: Zoraida Hauser RDCS Attending Provider: Mo Rivera MD Exam Type: CA echo doppler color flow Study Info Indications - ELEVATED TROPONIN Complete two-dimensional, color flow and Doppler transthoracic echocardiogram is performed. Summary 1. Complete two-dimensional, color flow and Doppler transthoracic echocardiogram is performed. 2. Normal left ventricular size, thickness and function. Visual ejection fraction is 60-65% and measured ejection fraction was 67%. Grade 1 diastolic dysfunction is present. 3. Right ventricular chamber dimension is mildly enlarged, with normal function.. 4. No pulmonary hypertension, estimated pulmonary arterial systolic pressure is 25 mmHg. 5. Probable normal sinus rhythm. 6. No significant valve disease. 7. Technically difficult study due to the patient's dementia and inability to cooperate. Left Ventricle Left ventricular chamber dimension is normal. Left ventricular systolic function is normal, estimated at 60-65%. There is no increased left ventricular wall thickness. Left ventricular septal wall motion is normal. The left ventricular diastolic function is grade I diastolic dysfunction. Right Ventricle Right ventricular chamber dimension is mildly enlarged, with normal function.. Right ventricular systolic function is normal. Left Atria Left atrial chamber dimension is mildly enlarged. Right Atria Right atrial chamber dimension is normal. Aortic Valve The aortic valve is trileaflet. There is no aortic valve sclerosis. There is no aortic valve stenosis. There is trace aortic valve regurgitation. Pulmonic Valve The pulmonic valve is normal. There is no pulmonic valve stenosis. There is no pulmonic regurgitation. Mitral Valve The mitral valve has normal leaflets. There is no mitral valve stenosis. There is no mitral valve regurgitation. Tricuspid Valve The tricuspid valve leaflets are normal. There is no significant tricuspid valve stenosis. There is no tricuspid valve regurgitation. No pulmonary hypertension, estimated pulmonary arterial systolic pressure is 25 mmHg. Pericardium/Pleural The pericardium appears normal. There is no pericardial effusion. Inferior Vena Cava Normal inferior vena cava with >50% collapse upon inspiration consistent with Empty right atrial pressure, 10 mmHg. Aorta The aortic root size at the sinus of Valsalva is normal. The prox ascending aorta size is normal. Left Ventricular Outflow Tract Name Value Normal LVOT 2D LVOT Diameter 2.0 cm LVOT Doppler LVOT Peak Gradient 6 mmHg LVOT Mean Gradient 3 mmHg LVOT VTI 19 cm LVOT VTI/AV V
--- NOTE | 2020-09-06 00:25 | PC.NURSE ---
This patient, Viry Mcgarry, was admitted to IMU Room 205-01. Patient/family oriented to hospital policies and general routines including ID bracelet, bed and alarms, visiting hours, pain management, procedures, bathroom and other care routines, personal items, smoking policy, room service/diet, and visiting hours. Information on how to activate the Rapid Response Team has been discussed. Patient/Family are encouraged to report perceived risks to care and to ask questions if they do not understand what they are told or what they should do.
[2020-09-06] MEDS: DEXTROSE 5% 1,000 ML 1,000 ML 120 ML IV CONT ×2 (05:25→14:00)
[2020-09-06 06:44] LABS: Basophils Percent Auto 0.3 % (0.2-1.2); Eosinophils Percent Auto 0.3 % (0-4.4); Hematocrit 36.4 % (37.0-47.0); Hemoglobin 10.4 g/dL (12.0-15.0); Immature Granulocyte Absolute 0.06 K/mm3 (0.00-0.031); Immature Granulocyte Percent A 0.6 % (0-0.5); Immature Platelet Fraction Pct 9.8 % (0.9-11.2); Lymphocytes Absolute Auto 1.07 K/mm3 (0.9-3.2); Lymphocytes Percent Auto 10.8 % (18.3-44.2); Mean Corpuscular HGB Conc 28.6 g/dl (32-36); Mean Corpuscular Hemoglobin 25.7 pg (26-34); Mean Corpuscular Volume 89.9 fl (80-100); Monocytes Absolute Auto 0.6 K/mm3 (0.1-0.6); Monocytes Percent Auto 5.6 % (2.6-8.5); Neutrophils Absolute Auto 8.2 K/mm3 (1.3-6.7); Neutrophils Percent Auto 82.4 % (45.5-73.1); Nucleated Red Blood Cells Perc 0.2 % (0.0-0.2); Platelet Count Result 99 k/mm3 (150-375); Red Blood Count 4.05 M/mm3 (4.2-5.4); Red Cell Distribution Width 20.7 % (11.5-14.5); White Blood Count 9.9 K/mm3 (4.5-10.0)
[2020-09-06 06:56] LABS: Alanine Aminotransferase 34 U/L (4-35); Albumin Level 2.9 g/dL (3.5-5.1); Alkaline Phosphatase 210 U/L (38-126); Anion Gap 11 mmol/L (8-16); Aspartate Amino Transferase 101 U/L (14-36); Bilirubin,Total 0.5 mg/dL (0.2-1.3); Blood Urea Nitrogen > 120 mg/dL (7-17); Calcium 8.7 mg/dL (8.4-10.2); Carbon Dioxide 19 mmol/L (22-30); Chloride 149 mmol/L (98-107); Estimated CRCL calculation 6 ml/min; Estimated Glomerular Filt Rate 6; Glucose 188 mg/dL (65-105); Potassium 4.3 mmol/L (3.4-5.0); Sodium 179 mmol/L (137-145)
[2020-09-06 07:05] LABS: Troponin I 0.291 ng/mL (0.000-0.034)
[2020-09-06 08:25] LABS: Creatine Kinase 2729 U/L (30-135)
--- NOTE | 2020-09-06 09:09 | PM.CNNEP ---
Assessment and Plan Assessment and plan (1) Acute renal failure: Code(s): N17.9 - Acute kidney failure, unspecified Status: Acute Assessment and Plan: the patient has CHAPIN She is likely dehydrated due to poor intake. Her BUN and creatinine are very high. Between this and the hypernatremia she is encephalopathic overlying her dementia. Will give IV fluids and monitor BUN and creatinine as we give these. (2) Hypernatremia: Code(s): E87.0 - Hyperosmolality and hypernatremia Status: Acute Assessment and Plan: The patient has hypernatremia. This is likely due to poor free water intake. She is on thickened liquids and not enthusiastic about eating or drinking. Will check serum and urine osmolality to be sure but I doubt if this is diabetes insipidus. (3) Complicated UTI (urinary tract infection): Code(s): N39.0 - Urinary tract infection, site not specified Status: Acute Assessment and Plan: The patient has pyuria. Cultures are being done. 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 (5) Metabolic acidosis: Code(s): E87.2 - Acidosis Status: Acute Assessment and Plan: The patient has metabolic acidosis. This is most likely due to the renal failure. The anion gap is only 11 so most likely the mechanism for this is under production of ammonia History of Present Illness Reason for Consult Consult date: 09/07/20 Chief Complaint Chief complaint: acute encephalopathy, dehydration, hypernatremia History of Present Illness Narrative: Charleen is an unfortunate 65-year-old lady who has multiple medical problems including anxiety, COPD, stroke, difficulty swallowing and so was on thickened liquids, dementia, depression, Wernicke-Korsakoff syndrome. The patient lives in an assisted living facility and needs help eating with her thickened diet. Lately the patient has become more and more confused. So she came to the emergency room. She appeared very Dehydrated. Her labs showed very high BUN creatinine and sodium. She was given D5 W overnight and things are a little bit better. Patient cannot give a history, she will not open her eyes she moves her arms about non purposefully but does not interact at all. Review of Systems Review of Systems: ROS unobtainable: Yes unobtainable due to medical condition PMFSH Past Medical History Medical History Anxiety COPD (chronic obstructive pulmonary disease) CVA (cerebral vascular accident) Dementia Depression Wernicke-Korsakoff syndrome Surgical History Surgical History No pertinent past surgical history Surgical history unknown Family History Family History Father Chronic obstructive pulmonary disease Anxiety Mother Hypertension Son No problems noted. Sibling Breast cancer Social History Social History Social History: The patient tells me that she used to smoke and according to her record she smoked 2 packs of cigarettes a day for greater than 40 years. She continued to smoke at up until at least 2018. She states that her is a durable power trust and estates attorney for healthcare that she only has 1 child. She states that she is a full code. The patient quit drinking approximately 2017. She tells me she has to drink vodka and 7up. Smoking status: Unknown if ever smoked Alcohol intake: unknown Substance use: unknown Gender identity (if verbalized by the patient): Female Sexual Orientation (if Verbalized by the Patient): Straight or Heterosexual Spiritual care concerns: No Meds Home Medications and Allergies Home Medica
--- NOTE | 2020-09-06 13:04 | PM.IMPN ---
Progress Note: A&P Assessment and Plan (1) Severe sepsis: Code(s): A41.9 - Sepsis, unspecified organism; R65.20 - Severe sepsis without septic shock Status: Acute Assessment and Plan: Present on admission with CHAPIN, leukocytosis, lactic acidosis and tachypnea. Source of sepsis appears to be urinary but symptoms also related to severe dehydration. Monitor vital signs and urine output. Repeat lactic acid normal. Continue treatment for UTI. Continue treatment for severe dehydration/CHAPIN/hypernatremia. (2) Acute encephalopathy: Code(s): G93.40 - Encephalopathy, unspecified Status: Acute Assessment and Plan: Jorge has acute on chronic encephalopathy with acute issue related to CHAPIN, UTI, uremia, and/or severe dehydration with hypernatremia. Check TSH w/ reflex T4, B12 and folate. Continue treatment for all these potential causes. Aspiration and fall precautions. Consider MRI brain and Neurology consultation if she is not back to her normal baseline with correction of these medical issues. (3) Hypernatremia: Code(s): E87.0 - Hyperosmolality and hypernatremia Status: Acute Assessment and Plan: Na 190 on admisison. Severe hypernatremia appears to be secondary to dehydration. Started on D5W and Na has drifted down to 179 today. Continue IV hydration. Monitor serum sodium. Nephrology following. Check TSH and cortisol (4) Acute renal failure: Code(s): N17.9 - Acute kidney failure, unspecified Status: Acute Assessment and Plan: BUN 151 with Cr 7.6. Likely prerenal and secondary to severe dehydration. Started on IV fluids. BUN 120 and Cr 7.1 today. Continue IV hydration. Monitor renal function and urine output. Avoid nephrotoxic agents, renally dose medications. Nephrology following and appreciate their input (5) Metabolic acidosis with increased anion gap and accumulation of organic acids: Code(s): E87.2 - Acidosis Status: Acute Assessment and Plan: Appears to be secondary to acute renal failure. Monitor acid-base status. (6) Rhabdomyolysis: Code(s): M62.82 - Rhabdomyolysis Status: Acute Assessment and Plan: TCK 1540 on admission and higher today. Continue IV hydration. Monitor renal function, electrolytes. (7) Elevated troponin: Code(s): R77.8 - Other specified abnormalities of plasma proteins Status: Acute Assessment and Plan: Troponin elevated to 0.34 on admission and from there is trending down. Likely due to acute renal failure +/- rhabdo. Doubt ACS but EKG does show inverted T waves in the high lateral leads which is new. Could be related to electrolyte abnormalities. Will check Echo. (8) Elevated liver enzymes: Code(s): R74.8 - Abnormal levels of other serum enzymes Status: Acute Assessment and Plan: May be seconadry to hypoperfusion. AST slightly higher today. Follow. (9) Complicated UTI (urinary tract infection): Code(s): N39.0 - Urinary tract infection, site not specified Status: Acute Assessment and Plan: UA noted. Urine culture pending. Continue IV antibiotics. (10) Dehydration: Code(s): E86.0 - Dehydration Status: Acute Assessment and Plan: As above. Continue IV hydration. Monitor vital signs and urine output. (11) Leukocytosis: Code(s): D72.829 - Elevated white blood cell count, unspecified Status: Acute Assessment and Plan: White count slightly elevated on admission. Could be related to UTI. Repeat count is normal. Continue to monitor. (12) Thrombocytopenia: Code(s): D69.6 - Thrombocytopenia, unspecified Status: Acute Assessment and Plan: [place] [address]. Probably consumptive. Could also be related to bone marrow suppression from her acute illness. Continue to monitor. Subjective Date/t
--- NOTE | 2020-09-06 13:33 | P.CDI_ITS ---
CDI Query Clarification Request -Acute encephalopathy related to severe hypernatremia and acute kidney injury has been documented. Please further specify type of acute encephalopathy: * Metabolic * Toxic * Hepatic * Hypertensive * Other * Unable to determine <Viry Trivedi RN - Last Filed: 09/06/20 13:35>
--- NOTE | 2020-09-06 13:33 | WPDCDIQUERY2 ---
CDI Query Clarification Request -Acute encephalopathy related to severe hypernatremia and acute kidney injury has been documented. Please further specify type of acute encephalopathy: Metabolic Toxic Hepatic Hypertensive Other Unable to determine <Viry Trivedi RN - Last Filed: 09/06/20 13:35>
[2020-09-06 15:54] LABS: Sodium 171 mmol/L (137-145)
[2020-09-06 20:10] LABS: Sodium 169 mmol/L (137-145)
[2020-09-07] VITALS (9 sets, daily range): BP systolic 82–113; BP diastolic 55–59; PULSE 76–92; RESP 12–22; TEMP 36–36.7; O2SAT 91–99; BMI 27.3
[2020-09-07] MEDS: DEXTROSE 5% 1,000 ML 1,000 ML 120 ML IV CONT ×2 (01:09→09:57)
[2020-09-07 02:02] LABS: Sodium 167 mmol/L (137-145)
[2020-09-07] MEDS: SODIUM CHLORIDE 0.9% IV 1,000 ML 500 ML IV CONT (05:39)
[2020-09-07 08:01] LABS: Basophils Percent Auto 0.1 % (0.2-1.2); Eosinophils Absolute Auto 0.4 K/mm3 (0-0.3); Eosinophils Percent Auto 4.9 % (0-4.4); Hematocrit 32.6 % (37.0-47.0); Hemoglobin 9.7 g/dL (12.0-15.0); Immature Granulocyte Absolute 0.06 K/mm3 (0.00-0.031); Immature Granulocyte Percent A 0.7 % (0-0.5); Immature Platelet Fraction Pct 11.2 % (0.9-11.2); Lymphocytes Percent Auto 12.3 % (18.3-44.2); Mean Corpuscular HGB Conc 29.8 g/dl (32-36); Mean Corpuscular Volume 87.4 fl (80-100); Monocytes Absolute Auto 0.6 K/mm3 (0.1-0.6); Monocytes Percent Auto 6.5 % (2.6-8.5); Neutrophils Absolute Auto 6.8 K/mm3 (1.3-6.7); Neutrophils Percent Auto 75.5 % (45.5-73.1); Platelet Count Result 83 k/mm3 (150-375); Red Blood Count 3.73 M/mm3 (4.2-5.4); Red Cell Distribution Width 20.2 % (11.5-14.5)
[2020-09-07 08:20] LABS: Alanine Aminotransferase 39 U/L (4-35); Albumin Level 2.6 g/dL (3.5-5.1); Alkaline Phosphatase 165 U/L (38-126); Anion Gap 8 mmol/L (8-16); Aspartate Amino Transferase 119 U/L (14-36); Bilirubin,Total 0.4 mg/dL (0.2-1.3); Calcium 7.7 mg/dL (8.4-10.2); Carbon Dioxide 20 mmol/L (22-30); Chloride 136 mmol/L (98-107); Estimated CRCL calculation 8 ml/min; Estimated Glomerular Filt Rate 7; Glucose 116 mg/dL (65-105); Magnesium 1.9 mg/dL (1.6-2.3); Phosphorus 4.9 mg/dL (2.5-4.5); Potassium 3.3 mmol/L (3.4-5.0); Sodium 164 mmol/L (137-145)
[2020-09-07 08:36] LABS: Blood Urea Nitrogen 133 mg/dL (7-17)
[2020-09-07 09:05] LABS: Thyroid Stimulating Hormone Reflex 0.029 uIU/mL (0.465-4.68)
[2020-09-07 09:18] LABS: Folic Acid > 20.0 ng/mL (2.76->20)
[2020-09-07 11:13] LABS: Free T4 Free Thyroxine Reflex 3.46 ng/dL (0.78-2.19)
[2020-09-07] MEDS: TOLNAFTATE 1% POWDER 45 GM BTL 1 APPLIC TOPICAL (11:24)
--- NOTE | 2020-09-07 14:54 | PM.IMPN ---
Progress Note: A&P Assessment and Plan (1) Severe sepsis: Code(s): A41.9 - Sepsis, unspecified organism; R65.20 - Severe sepsis without septic shock Status: Acute Assessment and Plan: Present on admission with CHAPIN, leukocytosis, lactic acidosis and tachypnea. Source of sepsis appears to be urinary may worse by severe dehydration. Repeat lactic acid normal. Monitor vital signs and urine output. Continue treatment for UTI. Continue treatment for severe dehydration/CHAPIN/hypernatremia. Spoke with by phone. Asked for permission to place NGT but refuses. He also does not want GTube. Explained that although she is improving, that without proper nutrition, she will have recurrent problems. Recommended hospice and he is receptive to this. Will have CC provide information to the about hospice. (2) Acute encephalopathy: Code(s): G93.40 - Encephalopathy, unspecified Status: Acute Assessment and Plan: Patient has chronic dementia/Wernicke's encephalopathy with acute encephalopathy related to CHAPIN, UTI, uremia, and/or severe dehydration with hypernatremia (mostly METABOLIC acute encephalopathy). TSH slightly low at 0.029 with elevated FT4 3.46. B12/folate normal. Continue treatment for all these potential causes. Aspiration and fall precautions. Consider MRI brain and Neurology consultation if she is not back to her normal baseline with correction of these medical issues. (3) Hypernatremia: Code(s): E87.0 - Hyperosmolality and hypernatremia Status: Acute Assessment and Plan: Na 190 on admisison. Severe hypernatremia appears to be secondary to dehydration. Started on D5W and Na has drifted down to 164 today. Continue IV hydration. Monitor serum sodium. Nephrology following. (4) Acute renal failure: Code(s): N17.9 - Acute kidney failure, unspecified Status: Acute Assessment and Plan: BUN 151 with Cr 7.6. Likely prerenal and secondary to severe dehydration. Started on IV fluids. BUN 133 and Cr 6.0 today. Continue IV hydration. Monitor renal function and urine output. Avoid nephrotoxic agents, renally dose medications. Nephrology following and appreciate their input (5) Metabolic acidosis with increased anion gap and accumulation of organic acids: Code(s): E87.2 - Acidosis Status: Acute Assessment and Plan: Appears to be secondary to acute renal failure. Monitor acid-base status. (6) Rhabdomyolysis: Code(s): M62.82 - Rhabdomyolysis Status: Acute Assessment and Plan: TCK 1540 on admission and higher yesterday. Continue IV hydration. Monitor renal function, electrolytes. (7) Elevated troponin: Code(s): R77.8 - Other specified abnormalities of plasma proteins Status: Acute Assessment and Plan: Troponin elevated to 0.34 on admission and from there is trending down. Likely due to acute renal failure +/- rhabdo. Doubt ACS but EKG does show inverted T waves in the high lateral leads which is new. Could be related to electrolyte abnormalities. Echo EF 60-65% and Grade 1 diastolic dysfunction; no wall motion abnormalities. Repeat EKG when electrolytes are better. (8) Elevated liver enzymes: Code(s): R74.8 - Abnormal levels of other serum enzymes Status: Acute Assessment and Plan: May be seconadry to hypoperfusion. AST slightly higher again today. Follow. (9) Complicated UTI (urinary tract infection): Code(s): N39.0 - Urinary tract infection, site not specified Status: Acute Assessment and Plan: UA noted. Urine culture growing EColi. Continue IV antibiotics. (10) Dehydration: Code(s): E86.0 - Dehydration Status: Acute Assessment and Plan: As above. Continue IV hydration. Monitor vital signs and urine output. (11) Leukocytosis: Code(s): D72.829 - Elevated white blood cell count, unspecif
--- NOTE | 2020-09-07 16:02 | PM.PNNEP ---
Progress Note: A&P Assessment and Plan (1) Acute renal failure: Code(s): N17.9 - Acute kidney failure, unspecified Status: Acute Assessment and Plan: the patient has CHAPIN She is likely dehydrated due to poor intake. (2) Hypernatremia: Code(s): E87.0 - Hyperosmolality and hypernatremia Status: Acute Assessment and Plan: The patient has hypernatremia. This is likely due to poor free water intake. Discussed with Dr. Jean Baptiste. I agree she will need an NG tube for sustenance short term and possibly a PEG for the long-term. Her sodium is coming down slowly. I do not want this to go too fast but I think we could bring it down a little more quickly so I will give her some extra fluid (3) Complicated UTI (urinary tract infection): Code(s): N39.0 - Urinary tract infection, site not specified Status: Acute Assessment and Plan: The patient has pyuria. Cultures are being done. 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 (5) Metabolic acidosis: Code(s): E87.2 - Acidosis Status: Acute Assessment and Plan: The patient has metabolic acidosis. This is improving Subjective Date/time seen: 09/07/20 16:02 Interval history: Patient is resting comfortably in bed. Not as agitated today. Still not interactive. Review of Systems Review of Systems: ROS unobtainable: Yes unobtainable due to medical condition Exam Narrative: Exam Narrative: WDWN in NAD skin no rash. Skin turgor is poor head ncat lungs clear cor reg no rub abd BS+ nontender and soft ext no edema. Mucous membranes are dry Objective Data Vital Signs Vital Signs: Vital Signs - 24 hr 09/06/20 18:00 09/06/20 19:49 09/06/20 20:00 Temperature 36.1 C L Pulse Rate 82 84 82 Respiratory Rate 24 H Blood Pressure 109/67 Pulse Oximetry 95 09/06/20 22:00 09/06/20 23:55 09/07/20 00:00 Temperature 36.2 C L Pulse Rate 78 81 76 Respiratory Rate 22 H Blood Pressure 110/67 Pulse Oximetry 95 09/07/20 02:00 09/07/20 04:00 09/07/20 06:00 Temperature 36.7 C Pulse Rate 76 81 82 Respiratory Rate 12 Blood Pressure 82/57 L Pulse Oximetry 99 09/07/20 08:00 09/07/20 12:00 Temperature 36.4 C 36.0 C L Pulse Rate 92 82 Respiratory Rate 14 22 H Blood Pressure 113/59 L 101/55 L Pulse Oximetry 91 99 Intake/Output Intake/Output: Intake & Output 09/04/20 09/05/20 09/06/20 09/07/20 23:59 23:59 23:59 23:59 Intake Total 1350 2050 3000 Output Total 400 250 Balance 1350 1650 2750 Meds/Results Medications: Active Medications Generic Name Dose Route Start Last Admin Trade Name Freq PRN Reason Stop Dose Admin Dextrose 1,000 mls @ 120 mls/hr 09/05/20 21:30 09/07/20 09:57 Dextrose 5% 1,000 Ml IV CONT 120 mls/hr .Q8H20M STEPHANIE Administration Ceftriaxone Sodium/Dextrose 1 gm in 50 mls @ 100 mls/hr 09/06/20 20:00 09/06/20 20:54 Rocephin 1 Gm/D5w 50 Ml IVPB Infused Q24H STEPHANIE Infusion Tolnaftate 1 applic 09/07/20 09:00 09/07/20 11:24 Tolnaftate 1% Powder 45 Gm Btl TOPICAL 1 applic Q12HR STEPHANIE Administration Radiology Results: ITS Impressions Chest X-Ray 09/05/20 18:50 IMPRESSION: 1. Left basilar airspace opacities, consistent with atelectasis versus pneumonia. Head CT 09/05/20 19:31 IMPRESSION: 1. No acute intracranial abnormality. 2. Age related findings. Renal Ultrasound 09/06/20 12:43 IMPRESSION: 1. Sonographically unremarkable kidneys. Labs Labs: Laboratory Results - last 24 hr 09/06/20 09/07/20 09/07/20 19:42 01:31 07:40 WBC 9.0 RBC 3.73 L Hgb 9.7 L Hct 32.6 L MCV 87.4 MCH 26.0 MCHC 29.8 L RDW 20.2 H Plt Count 83 L MPV TNP Immature Gran % (Auto) 0.7 H Neut % (Auto) 75.5 H Lymph % (Auto
--- NOTE | 2020-09-07 18:36 | PM.TDS ---
Transfer Discharge Sum: Prov Provider Date of admission: 09/05/20 21:40 Primary care physician: Ruel Escamilla, MRazia. Admitting clinician: Mo Rivera MD Consults: 09/05/20 21:42 Consult to Physician Routine Comment: Consulting Provider: Junito Nielsen Reason for consultation: acute renal failure Has provider been notified: Yes 09/07/20 Care Coordination Consult Routine Comment: Reason for Consult:: Hospice Referral Attending physician on discharge: Paul Jean Baptiste Discharging clinician: Paul Jean Baptiste Anticipated date of transfer: 09/07/20 Receiving physician/facility: Being transferred to hospice care. DS: Admitting Diagnosis Admitting Diagnosis Admitting Diagnosis: dehydration DS: Discharge Diagnosis Discharge Diagnosis (1) Severe sepsis: Code(s): A41.9 - Sepsis, unspecified organism; R65.20 - Severe sepsis without septic shock Status: Acute Assessment and Plan: Present on admission with CHAPIN, leukocytosis, lactic acidosis and tachypnea. Source of sepsis appears to be urinary made worse by severe dehydration. Repeat lactic acid normal. Spoke with by phone. Asked for permission to place NGT but refused. He also does not want GTube. Explained that although she is improving, that without proper nutrition, she will have recurrent problems. Discussed hospice and he is receptive to this. We provided information to the about hospice. He agreed to proceed with hospice and this was arranged. Patient transferred to inpatient hospice care. (2) Acute encephalopathy: Code(s): G93.40 - Encephalopathy, unspecified Status: Acute Assessment and Plan: Patient has chronic dementia/Wernicke's encephalopathy with acute encephalopathy related to CHAPIN, UTI, uremia, and/or severe dehydration with hypernatremia (mostly METABOLIC acute encephalopathy). TSH slightly low at 0.029 with elevated FT4 3.46. B12/folate normal. (3) Hypernatremia: Code(s): E87.0 - Hyperosmolality and hypernatremia Status: Acute Assessment and Plan: Na 190 on admisison. Severe hypernatremia secondary to dehydration. Started on D5W and Na has drifted down to 164. (4) Acute renal failure: Code(s): N17.9 - Acute kidney failure, unspecified Status: Acute Assessment and Plan: BUN 151 with Cr 7.6. Likely prerenal and secondary to severe dehydration. Started on IV fluids. Improved with BUN 133 and Cr 6.0 today. (5) Metabolic acidosis with increased anion gap and accumulation of organic acids: Code(s): E87.2 - Acidosis Status: Acute Assessment and Plan: Appears to be secondary to acute renal failure. (6) Rhabdomyolysis: Code(s): M62.82 - Rhabdomyolysis Status: Acute Assessment and Plan: TCK 1540 on admission and higher yesterday. Treated with IV hydration. (7) Elevated troponin: Code(s): R77.8 - Other specified abnormalities of plasma proteins Status: Acute Assessment and Plan: Troponin elevated to 0.34 on admission and from there is trending down. Likely due to acute renal failure +/- rhabdo. Doubt ACS but EKG does show inverted T waves in the high lateral leads which is new. Could be related to electrolyte abnormalities. Echo EF 60-65% and Grade 1 diastolic dysfunction; no wall motion abnormalities. (8) Elevated liver enzymes: Code(s): R74.8 - Abnormal levels of other serum enzymes Status: Acute Assessment and Plan: May be seconadry to hypoperfusion. AST slightly higher again today. (9) Complicated UTI (urinary tract infection): Code(s): N39.0 - Urinary tract infection, site not specified Status: Acute Assessment and Plan: Urine culture growing EColi. Treated with IV antibiotics. (10) Dehydration: Code(s): E86.0 - Dehydration Status: Acute Assessment and Plan:
== END 2020-09-07 17:55 | disposition hospice, inpatient (51) | DRG 871 ==
LOC: ANHED 17:56 → ANHIMU 09-06 00:08
PROVIDERS: Admitting Provider Family Medicine; Emergency Provider General Practice; PCP Family Medicine; Visit Provider Internal Medicine
DX: A41.9 Sepsis, unspecified organism (principal); G93.41 Metabolic encephalopathy; N39.0 Urinary tract infection, site not specified; E51.2 Wernicke's encephalopathy; N17.9 Acute kidney failure, unspecified; E87.0 Hyperosmolality and hypernatremia; E87.2 Acidosis; M62.82 Rhabdomyolysis; R65.20 Severe sepsis without septic shock; F04 Amnestic disorder due to known physiological condition; F03.90 Unspecified dementia, unspecified severity, without behavioral disturbance, psychotic disturbance, mood disturbance, and anxiety; E86.0 Dehydration; B96.20 Unspecified Escherichia coli [E. coli] as the cause of diseases classified elsewhere; D72.829 Elevated white blood cell count, unspecified; D69.6 Thrombocytopenia, unspecified; F41.8 Other specified anxiety disorders; J44.9 Chronic obstructive pulmonary disease, unspecified; Z86.73 Personal history of transient ischemic attack (TIA), and cerebral infarction without residual deficits; Z87.891 Personal history of nicotine dependence
CPT/HCPCS: 36415; 36600; 51701; 51702; 70450; 71045; 76775; 80048; 80053; 81001; 82140; 82375; 82533; 82550; 82607; 82746; 82805; 83050; 83605; 83735; 84100; 84295; 84439; 84443; 84484; 85025; 85055; 85610; 85730; 86140; 87077; 87086; 87088; 87186; 93005; 93306; 96361; 96365; 96372; 96375; 99291; A9270; J0696; J1630; J2060; J7030; J7070; J7120

== ENCOUNTER 2020-09-07 18:00 | HOS | payer OTHER, SELFPAY ==
[2020-09-07 19:50] VITALS: BP 79/26; PULSE 96; RESP 18; TEMP 36.6; O2SAT 93
[2020-09-07 20:00] VITALS: PULSE 93; RESP 14; O2SAT 53
[2020-09-07] MEDS: MORPHINE SULFATE (*CRX) 2 MG/ML INJ IV PUSH (20:15)
[2020-09-07] MEDS: LORazepam INJ (*CRX) 2 MG/ML VIAL 1 MG IV PUSH (20:22)
[2020-09-07] MEDS: MORPHINE SULFATE INJ (*CRX) 50 MG in SODIUM CHLORIDE 0.9% IV 95 ML IV CONT (20:28)
--- NOTE | 2020-09-07 23:46 | PC.NURSE ---
This patient, Viry Mcgarry, was transferred to room 312 on 09/07/20 at 1935. Personal belongings sent with patient. Report given to day shift RN per DORIAN Saravia. Appropriate documentation sent with patient.
[2020-09-08] MEDS: HYOSCYAMINE SULFATE 0.125 MG TABLET PO ×3 (03:35→14:05)
[2020-09-08] MEDS: LORazepam INJ (*CRX) 2 MG/ML VIAL 1 MG IV PUSH (04:00)
--- NOTE | 2020-09-08 04:48 | PC.NURSE ---
1950 09/07/20 Pt was received from IMU. Pt is admitted with [facility].
[2020-09-08 08:00] VITALS: BP 99/61; PULSE 112; RESP 20; TEMP 36.8; O2SAT 89
[2020-09-08] MEDS: MORPHINE SULFATE (*CRX) 2 MG/ML INJ IV PUSH (09:01)
--- NOTE | 2020-09-08 14:49 | PM.IMHP ---
H&P: HPI History of Present Illness Date/Time: 09/08/20 14:49 Chief Complaint: Hospice care Narrative: Viry Mcgarry is a 65 year old female with history of dementia and Wernicke's encephalopathy as admitted for hospice care. Patient was initially admitted on September 05 for altered mental status found to have a sepsis, sodium 190, BUN 151 and creatinine 7.6. She also had rhabdomyolysis. Her electrolytes and renal function improved with IV fluids. Spoke with the about placing NG tube for nutrition. Also spoke about the fact that patient may need a G-tube for long-term nutrition. refused the NG tube as well as a G-tube. Explained that her symptoms are improving with IV fluids but that this will most likely return. We did speak about hospice. He was receptive to more information which was provided by the family day care provider. He wished to make the patient hospice care. Patient was transferred to hospice care on the evening of September 07. Patient currently sedated and has underlying dementia and is unable to provide history. Review of Systems Review of Systems: ROS unobtainable: Yes unobtainable due to medical condition and unobtainable due to mental status PMFSH Past Medical History Medical History Anxiety COPD (chronic obstructive pulmonary disease) CVA (cerebral vascular accident) Dementia Depression Metabolic acidosis Wernicke-Korsakoff syndrome Surgical History Surgical History No pertinent past surgical history Surgical history unknown Family History Family History Father Chronic obstructive pulmonary disease Anxiety Mother Hypertension Son No problems noted. Sibling Breast cancer Social History Social History Social History: The patient tells me that she used to smoke and according to her record she smoked 2 packs of cigarettes a day for greater than 40 years. She continued to smoke at up until at least 2018. She states that her is a durable power attorney recruiter for healthcare that she only has 1 child. She states that she is a full code. The patient quit drinking approximately 2016. She tells me she has to drink vodka and 7up. Smoking status: Unknown if ever smoked Alcohol intake: unknown Substance use: unknown Gender identity (if verbalized by the patient): Female Spiritual care concerns: No Meds Home Medications and Allergies Home Medications Medication Instructions Recorded Confirmed Type docusate sodium [Stool Softener] 100 mg PO DAILY 08/07/20 09/06/20 History coiwmedvhzst-Xl-ggpd-minerals 1 tablet PO DAILY 08/07/20 09/06/20 History oxybutynin chloride 10 mg PO DAILY 08/07/20 09/06/20 History quetiapine 50 mg PO HS 08/07/20 09/06/20 History quetiapine 100 mg PO HS 08/07/20 09/06/20 History sertraline 50 mg PO DAILY 08/07/20 09/06/20 History sertraline 100 mg PO DAILY 08/07/20 09/06/20 History folic acid 1 mg PO DAILY #30 tablet 08/11/20 09/06/20 Rx lorazepam 0.5 mg PO DAILY PRN #30 tablet 08/11/20 09/06/20 Rx thiamine HCl (vitamin B1) [Vitamin 100 mg PO QAM #30 tablet 08/11/20 09/06/20 Rx B-1] Allergies Allergy/AdvReac Type Severity Reaction Status Date / Time No Known Allergies Allergy Verified 09/05/20 18:00 Vital Signs Vital Signs - 24 hr 09/07/20 19:50 09/07/20 20:00 09/08/20 08:00 Temperature 97.9 F 98.3 F Pulse Rate 96 93 112 H Respiratory Rate 18 14 20 Blood Pressure 79/26 L 99/61 L Pulse Oximetry 93 53 L 89 L Exam Narrative: Exam Narrative: AF 98.3 99/61 112 20 89% Gen - thin female sedated HEENT - dry mucous membranes Chest -coarse breath sounds anteriorly CV -tachycardic Abd -soft. Nondistended -Boateng secured draining clear yellow urine Ext - no edema Neuro -unresponsive Skin -e learning coordinator
--- NOTE | 2020-09-08 18:06 | PC.NURSE ---
Patient at 1720.
--- NOTE | 2020-09-08 18:27 | P.DN_ITS ---
Discharge Sum: Prov Provider Primary care physician: Ruel Escamilla, M.D. Admitting provider: Ernie Jean Baptiste MD Attending physician on admission: Paul Jean Baptiste Pronouncing clinician: Paul Jean Baptiste Discharge Sum: Diag PCOD Sepsis with CHAPIN. Contributing Factors (1) Severe sepsis: (2) Acute encephalopathy: (3) Wernicke-Korsakoff syndrome: (4) Metabolic acidosis: (5) Thrombocytopenia: (6) Hypernatremia: (7) Acute renal failure: (8) Rhabdomyolysis: (9) Elevated troponin: (10) Elevated liver enzymes: (11) Complicated UTI (urinary tract infection): (12) Leukocytosis: Discharge Sum: Summary Date and Time Date of admission: 09/07/20 18:00 Date of : 09/08/20 Summary Details: 65 year old female with history of dementia and Wernicke's encephalopathy as admitted for hospice care. Patient was initially admitted on September 05 for altered mental status found to have a sepsis, sodium 190, BUN 151 and creatinine 7.6. She also had rhabdomyolysis. Her electrolytes and renal function improved with IV fluids. Spoke with the about placing NG tube for nutrition. Also spoke about the fact that patient may need a G-tube for long-term nutrition. refused the NG tube as well as a G-tube. Explained that her symptoms are improving with IV fluids but that this will most likely return. We did speak about hospice. He was receptive to more information which was provided by the career resource specialist. He wished to make the patient hospice care. Patient was transferred to hospice care on the evening of September 07. Additional Data Attending physician: Ernie Jean Baptiste MD Hospice patient?: Yes
== END 2020-09-08 17:20 | disposition expired | DRG 872 ==
LOC: ANHIMU 18:07 → ANH3MEDSUR 20:37
PROVIDERS: Admitting Provider Internal Medicine; PCP Family Medicine; Visit Provider Internal Medicine
DX: A41.9 Sepsis, unspecified organism (principal); M62.82 Rhabdomyolysis; G93.40 Encephalopathy, unspecified; E87.2 Acidosis; E87.0 Hyperosmolality and hypernatremia; N39.0 Urinary tract infection, site not specified; N17.9 Acute kidney failure, unspecified; R65.20 Severe sepsis without septic shock; D69.6 Thrombocytopenia, unspecified; F04 Amnestic disorder due to known physiological condition; Z51.5 Encounter for palliative care; J44.9 Chronic obstructive pulmonary disease, unspecified; F03.90 Unspecified dementia, unspecified severity, without behavioral disturbance, psychotic disturbance, mood disturbance, and anxiety
CPT/HCPCS: A9270; J2060; J2270